=== PATIENT | male | born 1960 | race Asian ===

== ENCOUNTER → 2020-05-10 | Emergency (ER) | payer SELFPAY ==
[~2020-05-10] VITALS: Ht 160 cm; Wt 59.0 kg
[~2020-05-10] MED LIST: Tetanus/Diptheria/Pertussis IM ONE
--- NOTE | 2020-05-10 18:55 | NUR ---
En route to CT
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
--- NOTE | 2020-05-10 19:13 | NUR ---
Patient returned from CT who reported that bugs are crawling out from patient. He will be placed in isolation.
--- NOTE | 2020-05-10 19:22 | Diagnostic Imaging Report ---
EXAM: CT Head Without Intravenous Contrast CLINICAL HISTORY: FALL TECHNIQUE: Axial computed tomography images of the head/brain without intravenous contrast. CTDI is 53.4 mGy and DLP is 1018.8 mGy-cm. One or more of the following dose reduction techniques were used: automated exposure control, adjustment of the mA and/or kV according to patient size, use of iterative reconstruction technique. COMPARISON: No previous studies. FINDINGS: Brain: Small vessel disease of aging. No abnormal extra-axial collection. Area of encephalomalacia in the high left parietal region possibly related to chronic area of infarction. No hemorrhage. Ventricles: There is prominence of the ventricular system, cortical sulci, basilar cisterns, compatible with age related atrophy. Bones/joints: Calvarium is unremarkable. No acute fracture. Soft tissues: Scalp hematoma overlying the right frontotemporal region measuring 4 x 0.8 cm. Sinuses: Mild to moderate chronic ethmoid sinusitis. Mastoid air cells: Mastoid air cells are well pneumatized. Other findings: Axial and coronal images are provided. IMPRESSION: 1. Right frontotemporal scalp hematoma. 2. Age-related changes. 3. High left parietal encephalization. 4. No acute intracranial pathology is detected. 5. If there is concern for etiology such as early acute lacunar infarcts, magnetic resonance imaging of the brain with diffusion-weighted sequences should be performed.
--- NOTE | 2020-05-10 19:45 | NUR ---
ED Nurse Note: Blood specimens sent to lab
[2020-05-10 20:45] LABS: EOSINOPHILS % (AUTO) 4.2 % (0.0-3.0); HEMATOCRIT 36.6 % (42.0-52.0); HEMOGLOBIN 12.2 G/DL (14.2-18.0); LYMPHOCYTES % (AUTO) 16.1 % (20.0-45.0); MEAN CORPUSCULAR VOLUME 96 FL (80-99); MONOCYTES % (AUTO) 8.8 % (1.0-10.0); PLATELET COUNT 393 K/UL (150-450); RED BLOOD COUNT 3.83 M/UL (4.70-6.10); RED CELL DISTRIBUTION WIDTH 13.3 % (11.6-14.8); WHITE BLOOD COUNT 7.9 K/UL (4.8-10.8)
[2020-05-10 20:58] LABS: ANION GAP 5 mmol/L (5-15); BLOOD UREA NITROGEN 17 mg/dL (7-18); CALCIUM 8.8 MG/DL (8.5-10.1); CARBON DIOXIDE 31 MMOL/L (21-32); CHLORIDE 102 MMOL/L (98-107); CREATININE 0.9 MG/DL (0.55-1.30); POTASSIUM 4.2 MMOL/L (3.5-5.1); SODIUM 138 MMOL/L (136-145)
[2020-05-10 21:04] LABS: ALANINE AMINOTRANSFERASE 25 U/L (12-78); ALBUMIN/GLOBULIN RATIO 0.6 (1.0-2.7); ALKALINE PHOSPHATASE 116 U/L (46-116); ASPARTATE AMINO TRANSFERASE 31 U/L (15-37); BILIRUBIN,TOTAL 0.4 MG/DL (0.2-1.0)
--- NOTE | 2020-05-11 01:56 | NUR ---
ED Nurse Note: urine sent to lab
[2020-05-11 05:40] VITALS: BP 138/88
--- NOTE | 2020-05-11 05:40 | NUR ---
ER DISCHARGE NOTE: Patient is cleared to be discharged per ERMD, pt is aox4, on room air, with stable vital signs. pt was given dc instructions, pt was able to verbalize understanding, pt id band and iv site removed without complications. pt is able to ambulate with steady gait. pt took all belongings.
== END | disposition home or self-care (01) ==
LOC: EDBD 18:36 → EMR 18:55
DX: S09.90XA Unspecified injury of head, initial encounter (principal); W19.XXXA Unspecified fall, initial encounter; Y92.9 Unspecified place or not applicable; S00.03XA Contusion of scalp, initial encounter; G93.89 Other specified disorders of brain; Z23 Encounter for immunization
CPT/HCPCS: 36415; 70450; 80053; 85025; 90471; 90715; 96360; 99284; G0480; J7030; 80307